=== PATIENT | female | born 1985 | race Caucasian/White ===

== ENCOUNTER 2024-03-17 17:56 | Emergency (ER) | payer MEDICAID ==
[~2024-03-17] VITALS: Ht 172.7 cm; Wt 60.0 kg
[2024-03-17 18:03] VITALS: TEMP 98.6; O2SAT 96
[2024-03-17 19:22] LABS: BASOPHILS % 0.1 % (0.0-2.0); EOSINOPHILS % 1.5 % (0.0-5.0); HEMATOCRIT. 38.5 % (36.0-48.0); HEMOGLOBIN. 13.7 g/dL (12.0-16.0); LYMPHOCYTES % 33.7 % (20.0-50.0); MEAN CORPUSCULAR HEMOGLOBIN 33.9 pg (28.0-32.0); MEAN CORPUSCULAR HGB CONC 35.5 g/dL (31.0-37.0); MEAN CORPUSCULAR VOLUME 95.4 fL (81.0-99.0); MEAN PLATELET VOLUME 7.4 fl (7.4-10.4); MONOCYTES % 9.9 % (2.0-8.0); NEUTROPHILS % 54.8 % (40.0-76.0); PLATELET 198 x1000/uL (130-400); RED BLOOD CELL COUNT 4.03 mill/uL (4.2-5.4); RED CELL DISTRIBUTION WIDTH 12.3 % (11.6-14.6); WHITE BLOOD COUNT 3.9 x1000/uL (4.5-11.0)
[2024-03-17 19:37] LABS: HCG SCREEN NEGATIVE
[2024-03-17 19:45] LABS: CHLORIDE 97 mEq/L (98-107); POTASSIUM 4.7 mEq/L (3.5-5.1); SODIUM 123 mEq/L (136-145)
[2024-03-17 19:46] LABS: CALCIUM 9.1 mg/dL (8.7-10.4); CARBON DIOXIDE 24 mEq/L (21-32)
[2024-03-17 19:51] LABS: CREATININE 0.7 mg/dL (0.6-1.0); GLUCOSE 86 mg/dL (70-105); UREA NITROGEN BLOOD 11 mg/dL (9-23)
[2024-03-17 19:53] LABS: PHOSPHORUS 3.7 mg/dL (2.5-4.9)
[2024-03-17 19:54] LABS: CARBAMAZEPINE < 0.4 ug/mL (4-12); ETHANOL BLOOD < 10 mg/dL (<10)
[2024-03-17] MEDS ORDERED: SODIUM CHLORIDE 0.9% 500 ML IV ONE (23:00)
[2024-03-17 23:15] VITALS: BP 108/63; PULSE 82; RESP 16; O2SAT 98
== END 2024-03-18 00:03 | disposition left against medical advice (07) ==
LOC: ER 17:56 → CANBEDREQ 23:56 → ER 03-18 00:03
DX: R56.9 Unspecified convulsions (principal); E03.9 Hypothyroidism, unspecified; K58.9 Irritable bowel syndrome, unspecified
CPT/HCPCS: 80048; 80320; 80156; 84703; 83735; 84100; 85025; 36415; 93005; 99284; J7040; G0480

== ENCOUNTER 2024-05-06 04:17 | Emergency (ER) | payer MEDICAID ==
[~2024-05-06] VITALS: Ht 167.6 cm; Wt 66.0 kg
[2024-05-06 04:33] VITALS: BP 120/77; PULSE 114; RESP 20; TEMP 98.2; O2SAT 100
[2024-05-06] MEDS ORDERED: LACTATED RINGERS 1,000 ML IV SCH (05:30)
[2024-05-06] MEDS ORDERED: LORAZEPAM 2MG/ML INJ IV ONE (05:45)
[2024-05-06 06:00] LABS: BASOPHILS % 0.2 % (0.0-2.0); EOSINOPHILS % 1.6 % (0.0-5.0); HEMATOCRIT. 39.5 % (36.0-48.0); HEMOGLOBIN. 13.5 g/dL (12.0-16.0); LYMPHOCYTES % 21.3 % (20.0-50.0); MEAN CORPUSCULAR HEMOGLOBIN 33.7 pg (28.0-32.0); MEAN CORPUSCULAR HGB CONC 34.1 g/dL (31.0-37.0); MEAN CORPUSCULAR VOLUME 98.8 fL (81.0-99.0); MEAN PLATELET VOLUME 7.3 fl (7.4-10.4); MONOCYTES % 5.5 % (2.0-8.0); NEUTROPHILS % 71.4 % (40.0-76.0); PLATELET 238 x1000/uL (130-400); RED CELL DISTRIBUTION WIDTH 12.7 % (11.6-14.6); WHITE BLOOD COUNT 4.2 x1000/uL (4.5-11.0)
[2024-05-06 06:10] LABS: CHLORIDE 108 mEq/L (98-107); POTASSIUM 3.9 mEq/L (3.5-5.1); SODIUM 138 mEq/L (136-145)
[2024-05-06 06:11] LABS: CARBON DIOXIDE 22 mEq/L (21-32)
[2024-05-06 06:12] LABS: CALCIUM 9.3 mg/dL (8.7-10.4)
[2024-05-06 06:16] LABS: CREATININE 0.7 mg/dL (0.6-1.0); GLUCOSE 109 mg/dL (70-105); UREA NITROGEN BLOOD 14 mg/dL (9-23)
[2024-05-06 06:18] LABS: ALANINE AMINOTRANSFERASE 24 IU/L (10-49); ALBUMIN 4.7 g/dL (3.2-4.8); ASPARTATE AMINOTRANSFERASE 22 IU/L (<34)
[2024-05-06 06:19] LABS: BILIRUBIN TOTAL 0.5 mg/dL (0.1-1.0); PROTEIN TOTAL 7.4 g/dL (6.0-8.3)
[2024-05-06 06:36] LABS: HCG SCREEN NEGATIVE
[2024-05-06] MEDS ORDERED: LORAZEPAM 2MG/ML INJ IV NR (08:15)
[2024-05-06] MEDS ORDERED: CLONIDINE 0.1MG TABLET PO PRN (08:30)
[2024-05-06] MEDS ORDERED: MAGNESIUM/ALUMINUM HYDROXIDE/SIMETHICONE 30ML UDC PO PRN (08:30)
[2024-05-06] MEDS ORDERED: LEVOTHYROXINE SODIUM 100MCG TABLET PO NR (08:30)
[2024-05-06] MEDS ORDERED: ACETAMINOPHEN 325MG TABLET PO PRN (08:30)
[2024-05-06] MEDS ORDERED: IPRATROPIUM/ALBUTEROL 0.5-3(2.5)MG/3ML NEB HHN PRN (08:30)
[2024-05-06] MEDS ORDERED: ONDANSETRON HCL 4MG/2ML INJ IV PRN (08:30)
[2024-05-06] MEDS ORDERED: LORAZEPAM 2MG/ML INJ IV PRN (08:30)
[2024-05-06] MEDS ORDERED: OXCARBAZEPINE 300MG TABLET PO SCH (09:00)
[2024-05-06] MEDS ORDERED: TOPIRAMATE 100MG TABLET PO SCH (09:00)
[2024-05-06] MEDS ORDERED: CLOB10TA4 PO (09:03)
[2024-05-06] MEDS ORDERED: DICL100G58 TP (09:03)
[2024-05-06] MEDS ORDERED: CETI10TA6 PO (09:03)
[2024-05-06] MEDS ORDERED: OMEP40CA20 PO (09:03)
[2024-05-06] MEDS ORDERED: FLUT16SP15 (09:03)
[2024-05-06] MEDS ORDERED: TOPI100T37 PO (09:03)
[2024-05-06] MEDS ORDERED: FOLI-43 PO (09:03)
[2024-05-06] MEDS ORDERED: MONT-39 PO (09:03)
[2024-05-06] MEDS ORDERED: OXCA600T20 PO (09:03)
[2024-05-06] MEDS ORDERED: CEPH500C2 PO (09:03)
[2024-05-06] MEDS ORDERED: CLON2TAB11 PO (09:03)
[2024-05-06] MEDS ORDERED: PHEN-910 PO (09:03)
[2024-05-06] MEDS ORDERED: LEVOTHYROXINE SODIUM 100MCG TABLET PO SCH (09:30)
[2024-05-06 10:38] LABS: CREATINE KINASE 85 IU/L (34-145)
[2024-05-06 11:38] LABS: VITAMIN B12 SERUM 369 pg/mL (211-911)
[2024-05-06] MEDS ORDERED: CLONAZEPAM 1MG TABLET PO SCH (14:00)
[2024-05-06] MEDS ORDERED: MONTELUKAST SODIUM 10MG TABLET PO SCH (17:00)
[2024-05-06] MEDS ORDERED: FAMOTIDINE 20MG TABLET PO SCH (21:00)
== END 2024-05-06 11:15 | disposition left against medical advice (07) ==
LOC: ER 04:17
DX: G40.909 Epilepsy, unspecified, not intractable, without status epilepticus (principal); K21.9 Gastro-esophageal reflux disease without esophagitis; K58.9 Irritable bowel syndrome, unspecified; J45.909 Unspecified asthma, uncomplicated; F41.9 Anxiety disorder, unspecified; E03.9 Hypothyroidism, unspecified; Z79.899 Other long term (current) drug therapy; Z90.49 Acquired absence of other specified parts of digestive tract
CPT/HCPCS: 80053; 82550; 82607; 84703; 85025; 36415; 99283; J2060; Z7610 ×2

== ENCOUNTER 2024-05-21 06:29 | Emergency (ER) | payer MEDICAID ==
[~2024-05-21] VITALS: Ht 167.6 cm; Wt 65.0 kg
[~2024-05-21 06:29] MED LIST: CEPH500C2 PO; CETI10TA6 PO; CLOB10TA4 PO; CLON2TAB11 PO; DICL100G58 TP; FLUT16SP15; FOLI-43 PO; MONT-39 PO; OMEP40CA20 PO; OXCA600T20 PO; PHEN-910 PO; TOPI100T37 PO
[2024-05-21 06:33] VITALS: O2SAT 97
[2024-05-21] MEDS: KETOROLAC 30MG/ML VIAL IV STA (06:42)
[2024-05-21 11:32] VITALS: BP 104/65; PULSE 82; RESP 16; TEMP 36.78072; O2SAT 97
[2024-05-21] MEDS ORDERED: HYDROMORPHONE HCL/PF 1MG/ML INJ IV PRN (12:30)
[2024-05-21] MEDS ORDERED: LABETALOL 5MG/ML 4ML INJ IV PRN (12:30)
[2024-05-21] MEDS ORDERED: ONDANSETRON HCL 4MG/2ML INJ IV PRN (12:30)
[2024-05-21] MEDS ORDERED: MEPERIDINE HCL/PF 25MG/ML CPJ IV PRN (12:30)
== END 2024-05-21 12:00 | disposition admitted as inpatient to this hospital (09) ==
LOC: ER 06:44 → EDBEDREQ 10:02 → EDBEDREQTM 10:02 → ER 12:00
DX: T18.108A Unspecified foreign body in esophagus causing other injury, initial encounter (principal); M54.2 Cervicalgia; J45.909 Unspecified asthma, uncomplicated; Z79.899 Other long term (current) drug therapy; Z86.59 Personal history of other mental and behavioral disorders; W44.9XXA Unspecified foreign body entering into or through a natural orifice, initial encounter; Y93.89 Activity, other specified; Y92.89 Other specified places as the place of occurrence of the external cause; Y99.8 Other external cause status
CPT/HCPCS: 43247; 43239; 88300; 70490; 96374; 99285; J1885; Z7610 ×7

== ENCOUNTER 2024-06-07 17:24 | Emergency (ER) | payer MEDICAID ==
[~2024-06-07] VITALS: Ht 157.5 cm; Wt 62.0 kg
[2024-06-07 17:39] VITALS: O2SAT 99
[2024-06-07 23:05] VITALS: BP 124/68; PULSE 87; RESP 18; TEMP 36.83628; O2SAT 99
== END 2024-06-07 23:59 | disposition home or self-care (01) ==
LOC: ER 17:24
DX: F41.9 Anxiety disorder, unspecified (principal); K58.9 Irritable bowel syndrome, unspecified; K21.9 Gastro-esophageal reflux disease without esophagitis; J45.909 Unspecified asthma, uncomplicated; E03.9 Hypothyroidism, unspecified; Z79.899 Other long term (current) drug therapy; Z90.49 Acquired absence of other specified parts of digestive tract
CPT/HCPCS: 99281

== ENCOUNTER 2024-06-28 16:30 | Emergency (ER) | payer MEDICAID ==
[~2024-06-28] VITALS: Ht 157.5 cm; Wt 59.9 kg
[2024-06-28 16:31] VITALS: O2SAT 98
[2024-06-28 16:40] VITALS: BP 120/70; PULSE 82; RESP 16; TEMP 36.8; O2SAT 100
== END 2024-06-28 21:49 | disposition left against medical advice (07) ==
LOC: ER 16:30
DX: R56.9 Unspecified convulsions (principal); Z53.21 Procedure and treatment not carried out due to patient leaving prior to being seen by health care provider

== ENCOUNTER 2024-11-05 04:38 | Emergency (ER) | payer MEDICAID ==
[~2024-11-05] VITALS: Ht 162.6 cm; Wt 56.0 kg
[~2024-11-05 04:38] MED LIST changes: +CALC-1042 PO; +CETI10CA2 PO; +CHOL400D7 PO; -CLOB10TA4 PO; +FAMO40TA7 PO; +LEVO100T PO; +LEVO750T68 MT; +MULT-1146 PO; -PHEN-910 PO; +TOPI-253 PO; -TOPI100T37 PO
[2024-11-05 04:47] VITALS: O2SAT 97
[2024-11-05 06:50] LABS: BASOPHILS % 0.3 % (0.0-2.0); HEMATOCRIT. 37.7 % (36.0-48.0); HEMOGLOBIN. 13.1 g/dL (12.0-16.0); LYMPHOCYTES % 23.6 % (20.0-50.0); MEAN CORPUSCULAR HEMOGLOBIN 33.2 pg (28.0-32.0); MEAN CORPUSCULAR HGB CONC 34.8 g/dL (31.0-37.0); MEAN CORPUSCULAR VOLUME 95.4 fL (81.0-99.0); MEAN PLATELET VOLUME 7.9 fl (7.4-10.4); MONOCYTES % 8.3 % (2.0-8.0); NEUTROPHILS % 66.8 % (40.0-76.0); PLATELET 190 x1000/uL (130-400); RED BLOOD CELL COUNT 3.95 mill/uL (4.2-5.4); RED CELL DISTRIBUTION WIDTH 13.6 % (11.6-14.6)
[2024-11-05] MEDS ORDERED: PATIENT'S OWN MEDICATION PO SCH (07:00)
[2024-11-05 07:05] LABS: CHLORIDE 107 mEq/L (98-107); POTASSIUM 5.3 mEq/L (3.5-5.1); SODIUM 137 mEq/L (136-145)
[2024-11-05 07:06] LABS: CARBON DIOXIDE 23 mEq/L (21-32)
[2024-11-05 07:07] LABS: CALCIUM 9.7 mg/dL (8.7-10.4)
[2024-11-05 07:11] LABS: CREATININE 0.8 mg/dL (0.6-1.0); GLUCOSE 98 mg/dL (70-105); UREA NITROGEN BLOOD 19 mg/dL (9-23)
[2024-11-05 07:21] LABS: TROPONIN I HIGH SENSITIVITY < 4 ng/L (3.0-34)
[2024-11-05 07:23] LABS: HCG SCREEN NEGATIVE
[2024-11-05] MEDS: CLONAZEPAM 1MG TABLET PO ONE (07:24)
[2024-11-05] MEDS ORDERED: DICY10SO PO (08:18)
[2024-11-05 08:25] VITALS: BP 123/73; PULSE 84; RESP 12; TEMP 36.7; O2SAT 97
[2024-11-05 09:43] LABS: TROPONIN I HIGH SENSITIVITY < 4 ng/L (3.0-34)
== END 2024-11-05 09:08 | disposition left against medical advice (07) ==
LOC: ER 04:38 → EDBEDREQ 08:07 → EDBEDREQTM 08:07 → ENRESERV 08:17 → CANBEDREQ 08:41 → ER 09:08
DX: R55 Syncope and collapse (principal); G40.909 Epilepsy, unspecified, not intractable, without status epilepticus; Z88.8 Allergy status to other drugs, medicaments and biological substances; Z79.899 Other long term (current) drug therapy; Z91.048 Other nonmedicinal substance allergy status; Z91.040 Latex allergy status
CPT/HCPCS: 36415; 71045; 80048; 81025; 83880; 84484; 84703; 85025; 93005; 99285

== ENCOUNTER 2024-12-04 19:36 | Emergency (ER) | payer MEDICAID ==
[~2024-12-04] VITALS: Ht 162.6 cm; Wt 51.0 kg
[~2024-12-04 19:36] MED LIST changes: -CALC-1042 PO; -CEPH500C2 PO; -DICL100G58 TP; +DICY10SO PO; -FLUT16SP15; -OMEP40CA20 PO
[2024-12-04 19:39] VITALS: O2SAT 98
[2024-12-04 20:51] LABS: BASOPHILS % 0.2 % (0.0-2.0); EOSINOPHILS % 1.8 % (0.0-5.0); HEMATOCRIT. 38.5 % (36.0-48.0); HEMOGLOBIN. 12.9 g/dL (12.0-16.0); LYMPHOCYTES % 36.0 % (20.0-50.0); MEAN PLATELET VOLUME 7.4 fl (7.4-10.4); MONOCYTES % 10.2 % (2.0-8.0); NEUTROPHILS % 51.8 % (40.0-76.0); PLATELET 179 x1000/uL (130-400); RED BLOOD CELL COUNT 3.95 mill/uL (4.2-5.4); RED CELL DISTRIBUTION WIDTH 13.1 % (11.6-14.6)
[2024-12-04 21:03] LABS: HCG SCREEN NEGATIVE
[2024-12-04 21:05] LABS: CREATININE 0.7 mg/dL (0.6-1.0); UREA NITROGEN BLOOD 15 mg/dL (9-23)
[2024-12-04] MEDS: SODIUM CHLORIDE 0.9% 1,000 ML IV ONE (23:59)
[2024-12-05 02:00] VITALS: BP 114/65; PULSE 70; RESP 17; TEMP 36.7; O2SAT 98
== END 2024-12-05 02:00 | disposition home or self-care (01) ==
LOC: ER 19:36
DX: R56.9 Unspecified convulsions (principal); E03.9 Hypothyroidism, unspecified; Z79.899 Other long term (current) drug therapy
CPT/HCPCS: 99285; 96360; 80048; 84703; 85025; 36415; J7030

== ENCOUNTER 2025-01-11 17:24 | Emergency (ER) | payer MEDICAID ==
[~2025-01-11] VITALS: Ht 157.5 cm; Wt 60.0 kg
[2025-01-11 17:28] VITALS: O2SAT 99
[2025-01-11] MEDS: LORAZEPAM 1MG TABLET PO ONE (18:55)
[2025-01-11 20:26] LABS: BASOPHILS % 0.1 % (0.0-2.0); EOSINOPHILS % 1.0 % (0.0-5.0); HEMATOCRIT. 40.0 % (36.0-48.0); HEMOGLOBIN. 13.7 g/dL (12.0-16.0); LYMPHOCYTES % 23.6 % (20.0-50.0); MEAN PLATELET VOLUME 7.3 fl (7.4-10.4); MONOCYTES % 8.3 % (2.0-8.0); NEUTROPHILS % 67.0 % (40.0-76.0); PLATELET 206 x1000/uL (130-400); RED BLOOD CELL COUNT 4.12 mill/uL (4.2-5.4); RED CELL DISTRIBUTION WIDTH 13.4 % (11.6-14.6)
[2025-01-11 20:44] LABS: CREATININE 0.7 mg/dL (0.6-1.0); ETHANOL BLOOD < 10 mg/dL (<10); UREA NITROGEN BLOOD 16 mg/dL (9-23)
[2025-01-11 22:02] LABS: *AMPHETAMINES SCREEN URINE NEGATIVE (NEGATIVE); *BARBITURATES SCREEN URINE NEGATIVE (NEGATIVE); *BENZODIAZEPINES SCREEN URINE NEGATIVE (NEGATIVE); *COCAINE SCREEN URINE NEGATIVE (NEGATIVE); METHADONE URINE SCREEN NEGATIVE (NEGATIVE)
[2025-01-11 22:03] LABS: CANNABINOID URINE SCREEN NEGATIVE (NEGATIVE); ECSTASY MDMA SCREEN URINE NEGATIVE (NEGATIVE); OPIATES URINE SCREEN NEGATIVE (NEGATIVE); PHENCYCLIDINE URINE SCREEN NEGATIVE (NEGATIVE)
[2025-01-12] MEDS ORDERED: TOPA200 MT (04:39)
[2025-01-12] MEDS ORDERED: CLON2TAB21 PO (04:39)
[2025-01-12 06:00] VITALS: TEMP 36.8
[2025-01-12] MEDS ORDERED: PATIENT'S OWN MEDICATION PO SCH (06:15)
[2025-01-12] MEDS: LORAZEPAM 1MG TABLET PO ONE (06:55)
[2025-01-12] MEDS: OXCARBAZEPINE 300MG TABLET PO SCH (09:55)
[2025-01-12 10:25] VITALS: BP 129/82; PULSE 97; RESP 16; O2SAT 100
== END 2025-01-12 10:30 | disposition home or self-care (01) ==
LOC: ER 17:24
DX: F22 Delusional disorders (principal); F41.9 Anxiety disorder, unspecified; Z59.00 Homelessness unspecified; Z79.890 Hormone replacement therapy; Z79.899 Other long term (current) drug therapy; Z90.49 Acquired absence of other specified parts of digestive tract; Z98.51 Tubal ligation status; Z20.822 Contact with and (suspected) exposure to COVID-19
CPT/HCPCS: 36415; 80048; 80305; 80320; 81025; 85025; 87426; 93005; 99285; G0480

== ENCOUNTER 2025-02-22 13:50 | Emergency (ER) | payer MEDICAID, OTHER ==
[~2025-02-22] VITALS: Ht 157.5 cm; Wt 62.0 kg
[~2025-02-22 13:50] MED LIST changes: +CLON2TAB21 PO; +TOPA200 MT
[2025-02-22 13:56] VITALS: O2SAT 100
[2025-02-22 15:10] LABS: BASOPHILS % 0.4 % (0.0-2.0); EOSINOPHILS % 1.1 % (0.0-5.0); HEMATOCRIT. 37.1 % (36.0-48.0); HEMOGLOBIN. 12.6 g/dL (12.0-16.0); LYMPHOCYTES % 27.5 % (20.0-50.0); MEAN PLATELET VOLUME 7.5 fl (7.4-10.4); MONOCYTES % 8.8 % (2.0-8.0); NEUTROPHILS % 62.2 % (40.0-76.0); PLATELET 196 x1000/uL (130-400); RED BLOOD CELL COUNT 3.84 mill/uL (4.2-5.4); RED CELL DISTRIBUTION WIDTH 12.9 % (11.6-14.6)
[2025-02-22 15:23] LABS: CREATININE 0.7 mg/dL (0.6-1.0); UREA NITROGEN BLOOD 11 mg/dL (9-23)
[2025-02-22 16:41] LABS: CLARITY URINE CLEAR (CLEAR); COLOR URINE YELLOW (YELLOW); GLUCOSE URINE NEGATIVE (NEGATIVE); KETONES URINE NEGATIVE (NEGATIVE); LEUKOCYTE ESTERASE URINE NEGATIVE (NEGATIVE); NITRITE URINE NEGATIVE (NEGATIVE); OCCULT BLOOD URINE NEGATIVE (NEGATIVE); PH URINE 7.0 (4.5-8.0); PROTEIN URINE NEGATIVE (NEGATIVE); SPECIFIC GRAVITY URINE 1.012 (1.005-1.030); UROBILINOGEN URINE 0.2 E.U./dL (0.2-1.0)
[2025-02-22 16:51] LABS: *AMPHETAMINES SCREEN URINE NEGATIVE (NEGATIVE); *BARBITURATES SCREEN URINE NEGATIVE (NEGATIVE); *BENZODIAZEPINES SCREEN URINE NEGATIVE (NEGATIVE); *COCAINE SCREEN URINE NEGATIVE (NEGATIVE); CANNABINOID URINE SCREEN NEGATIVE (NEGATIVE); METHADONE URINE SCREEN NEGATIVE (NEGATIVE); OPIATES URINE SCREEN NEGATIVE (NEGATIVE); PHENCYCLIDINE URINE SCREEN NEGATIVE (NEGATIVE)
[2025-02-22 16:52] LABS: ECSTASY MDMA SCREEN URINE NEGATIVE (NEGATIVE)
[2025-02-22] MEDS: LORAZEPAM 1MG TABLET PO ONE (18:09)
[2025-02-22 18:20] VITALS: BP 126/74; PULSE 82; RESP 16; TEMP 36.7; O2SAT 100
== END 2025-02-22 18:43 | disposition home or self-care (01) ==
LOC: ER 13:50
DX: G40.909 Epilepsy, unspecified, not intractable, without status epilepticus (principal); F13.20 Sedative, hypnotic or anxiolytic dependence, uncomplicated; Z79.899 Other long term (current) drug therapy; E03.9 Hypothyroidism, unspecified; Z91.048 Other nonmedicinal substance allergy status; Z91.040 Latex allergy status
CPT/HCPCS: 36415; 80048; 80305; 80320; 81003; 85025; 99283; G0480

== ENCOUNTER 2025-03-26 13:43 | Emergency (ER) | payer MEDICAID ==
[~2025-03-26] VITALS: Ht 157.5 cm; Wt 60.0 kg
[2025-03-26 13:55] VITALS: O2SAT 100
[2025-03-26] MEDS: ONDANSETRON 4MG ODT PO ONE (15:35)
[2025-03-26] MEDS: ACETAMINOPHEN 500MG TABLET PO ONE (15:35)
[2025-03-26 17:25] VITALS: BP 11/61; PULSE 65; RESP 18; TEMP 36.7; O2SAT 100
== END 2025-03-26 17:54 | disposition home or self-care (01) ==
LOC: ER 13:43
DX: T50.901A Poisoning by unspecified drugs, medicaments and biological substances, accidental (unintentional), initial encounter (principal); I10 Essential (primary) hypertension; F41.9 Anxiety disorder, unspecified; E03.9 Hypothyroidism, unspecified; Z79.899 Other long term (current) drug therapy; Z90.49 Acquired absence of other specified parts of digestive tract; Z91.040 Latex allergy status; Z98.51 Tubal ligation status; X58.XXXA Exposure to other specified factors, initial encounter; Y93.89 Activity, other specified; Y92.89 Other specified places as the place of occurrence of the external cause; Y99.8 Other external cause status
CPT/HCPCS: 99283; Q0162

== ENCOUNTER 2025-04-28 15:45 | Emergency (ER) | payer MEDICAID ==
[~2025-04-28] VITALS: Ht 165.1 cm; Wt 72.0 kg
[2025-04-28 15:51] VITALS: O2SAT 99
[2025-04-28 19:00] LABS: CLARITY URINE CLEAR (CLEAR); COLOR URINE YELLOW (YELLOW); GLUCOSE URINE NEGATIVE (NEGATIVE); KETONES URINE NEGATIVE (NEGATIVE); LEUKOCYTE ESTERASE URINE NEGATIVE (NEGATIVE); NITRITE URINE NEGATIVE (NEGATIVE); OCCULT BLOOD URINE NEGATIVE (NEGATIVE); PH URINE 7.0 (4.5-8.0); PROTEIN URINE NEGATIVE (NEGATIVE); SPECIFIC GRAVITY URINE 1.015 (1.005-1.030); UROBILINOGEN URINE 0.2 E.U./dL (0.2-1.0)
[2025-04-28] MEDS: HYDROXYZINE 25MG TABLET PO ONE (19:38)
[2025-04-28 23:29] LABS: BASOPHILS % 0.3 % (0.0-2.0); EOSINOPHILS % 0.8 % (0.0-5.0); HEMATOCRIT. 40.0 % (36.0-48.0); HEMOGLOBIN. 13.3 g/dL (12.0-16.0); LYMPHOCYTES % 44.0 % (20.0-50.0); MEAN PLATELET VOLUME 7.3 fl (7.4-10.4); MONOCYTES % 9.3 % (2.0-8.0); NEUTROPHILS % 45.6 % (40.0-76.0); PLATELET 198 x1000/uL (130-400); RED BLOOD CELL COUNT 4.09 mill/uL (4.2-5.4); RED CELL DISTRIBUTION WIDTH 12.7 % (11.6-14.6)
[2025-04-28 23:43] LABS: CREATININE 0.6 mg/dL (0.6-1.0); UREA NITROGEN BLOOD 11 mg/dL (9-23)
[2025-04-29 00:23] VITALS: BP 89/54; PULSE 65; RESP 16; TEMP 37.1; O2SAT 99
== END 2025-04-29 00:30 | disposition home or self-care (01) ==
LOC: ER 15:45
DX: F41.9 Anxiety disorder, unspecified (principal); G40.909 Epilepsy, unspecified, not intractable, without status epilepticus; E11.9 Type 2 diabetes mellitus without complications; I10 Essential (primary) hypertension; Z91.040 Latex allergy status
CPT/HCPCS: 36415; 80048; 81003; 81025; 82962; 85025; 99283